=== PATIENT | female | born 1950 | race Caucasian/White ===

== ENCOUNTER 2017-10-12 11:31 | Observation (INO) | payer OTHER, MEDICARE ==
[2017-10-12] MEDS: SOD CHLORIDE 0.9% 500 ML IV (16:59)
[2017-10-12 17:02] LABS: ADD MAN DIFF? NO
[2017-10-12 17:03] LABS: BASOPHILS % 0.2 % (0.0-2.0); EOSINOPHILS % 0.3 % (0.0-7.0); HEMATOCRIT 43.6 % (37.0-47.0); HEMOGLOBIN 14.4 g/dl (12.0-16.0); LYMPHOCYTES # 0.9 10^3/ul (0.8-2.9); LYMPHOCYTES % 8.9 % (15.0-51.0); MEAN CORPUSCULAR HEMOGLOBIN 29.9 pg (29.0-33.0); MEAN CORPUSCULAR VOLUME 90.6 fl (82.0-101.0); MEAN PLATELET VOLUME 10.7 fl (7.4-10.4); MONOCYTE # 0.3 10^3/ul (0.3-0.9); MONOCYTES % 2.5 % (0.0-11.0); NEUTROPHIL # 8.7 10^3/ul (1.6-7.5); NEUTROPHILS % 87.3 % (39.0-77.0); PLATELET COUNT 230 10^3/UL (140-415); RED BLOOD COUNT 4.81 10^6/ul (4.20-5.40); RED CELL DISTRIBUTION WIDTH 13.5 % (11.5-14.5)
[2017-10-12] MEDS: ASPIRIN 81 MG TAB PO (17:04)
[2017-10-12 17:24] LABS: ALANINE AMINOTRANSFERASE 50 IU/L (13-69); ALBUMIN 4.7 g/dl (3.3-4.9); ALBUMIN/GLOBULIN RATIO 1.34; ALKALINE PHOSPHATASE 74 IU/L (42-121); ANION GAP 13 (8-16); ASPARTATE AMINO TRANSFERASE 39 IU/L (15-46); BILIRUBIN,INDIRECT 0.5 mg/dl (0-1.1); BILIRUBIN,TOTAL 0.5 mg/dl (0.2-1.3); BLOOD UREA NITROGEN 12 mg/dl (7-20); CALCIUM 9.5 mg/dl (8.4-10.2); CARBON DIOXIDE 29 mmol/L (21-31); CHLORIDE 97 mmol/L (97-110); CREATININE 0.71 mg/dl (0.44-1.00); GLUCOSE 128 mg/dl (70-220); LIPASE 124 U/L (23-300); POTASSIUM 4.1 mmol/L (3.5-5.1); SODIUM 135 mmol/L (135-144); TOTAL PROTEIN 8.2 g/dl (6.1-8.1)
[2017-10-12 17:36] LABS: TROPONIN-I < 0.012 ng/ml (0.00-0.12)
[2017-10-12] MEDS ORDERED: NITROGLYCERIN (SL) 0.4 MG TAB SL (19:00)
[2017-10-12] MEDS ORDERED: DOCUSATE SODIUM 100 MG CAP PO (19:00)
[2017-10-12] MEDS ORDERED: ONDANSETRON 4 MG INJ IV (19:00)
[2017-10-12] MEDS ORDERED: LORAZEPAM 2 MG INJ IV (19:00)
[2017-10-12] MEDS ORDERED: NACL 0.9% 3 ML SYG IV (19:00)
[2017-10-12] MEDS ORDERED: HYDROCODONE/APAP (5/325) TAB PO ×2 (19:00)
[2017-10-12] MEDS ORDERED: ACETAMINOPHEN 325 MG TAB PO (19:00)
[2017-10-12] MEDS ORDERED: MAGNESIUM HYDROXIDE 30ML CUP PO (19:00)
[2017-10-12 19:28] LABS: CHOLESTEROL 244 mg/dl (100-200)
[2017-10-12 19:28] LABS: CHOL/HDL RATIO 2.9 RATIO; HDL CHOLESTEROL 83 mg/dl (35-98); LDL CHOLESTEROL,CALCULATED 148 mg/dl; TRIGLYCERIDES 63 mg/dl (0-149)
[2017-10-12 19:46] LABS: HEMOGLOBIN A1C 5.5 % (0-5.9)
[2017-10-12 20:00] LABS: THYROID STIMULATING HORMONE 0.598 MIU/L (0.465-4.680)
[2017-10-12] MEDS: SALMETEROL/FLUTICASONE 250/50 INHA INH (21:00)
[2017-10-12] MEDS ORDERED: PREGABALIN 50 MG CAP PO (21:00)
[2017-10-12] MEDS: ZOLPIDEM 5 MG TAB PO (21:35)
[2017-10-12] MEDS: BUPROPION (SR) 100 MG TAB PO (21:36)
[2017-10-12] MEDS: MONTELUKAST 10 MG TAB PO (21:36)
[2017-10-12] MEDS: PREGABALIN 25 MG CAP PO (23:03)
[2017-10-13 02:02] LABS: TROPONIN-I < 0.012 ng/ml (0.00-0.12)
[2017-10-13 05:43] LABS: TROPONIN-I < 0.012 ng/ml (0.00-0.12)
[2017-10-13] MEDS: PANTOPRAZOLE (EC) 40 MG TAB PO (05:46)
[2017-10-13] MEDS: SALMETEROL/FLUTICASONE 250/50 INHA INH (08:47)
[2017-10-13] MEDS: LEVOTHYROXINE 125 MCG TAB PO (08:47)
[2017-10-13] MEDS: ARIPIPRAZOLE 5 MG TAB PO (08:47)
[2017-10-13] MEDS: predniSONE 20 MG TAB PO (08:48)
[2017-10-13] MEDS: MELOXICAM 15 MG TAB PO (08:48)
[2017-10-13] MEDS: PROPRANOLOL 20 MG TAB PO (08:48)
[2017-10-13] MEDS: PREGABALIN 25 MG CAP PO ×2 (08:48→13:22)
[2017-10-13] MEDS: BUPROPION (SR) 100 MG TAB PO (08:49)
[2017-10-13] MEDS: FLUOXETINE 20 MG CAP PO (08:49)
[2017-10-13] MEDS: ENOXAPARIN 40 MG/0.4 ML SYG SC (08:51)
[2017-10-13] MEDS ORDERED: [UNRECOGNIZED DRUG - OTHER] PO (09:00)
[2017-10-13] MEDS ORDERED: NON-FORMULARY/PATIENT OWN MED (Mirabegron (Myrbetriq) 50 MG) PO (09:00)
[2017-10-13] MEDS ORDERED: ESTRADIOL PO (09:00)
[2017-10-13] MEDS ORDERED: NORETHINDRONE ACET PO (09:00)
[2017-10-13 13:23] LABS: D-DIMER 450.03 ng/ml (<460)
== END 2017-10-13 15:00 | disposition home or self-care (01) ==
LOC: E/R 11:31 → MS3 21:34 → E/R 18:10 → MS3 18:10
DX: R07.89 Other chest pain (principal); Z88.6 Allergy status to analgesic agent; Z91.048 Other nonmedicinal substance allergy status; J45.909 Unspecified asthma, uncomplicated; E03.9 Hypothyroidism, unspecified; K21.9 Gastro-esophageal reflux disease without esophagitis; M85.80 Other specified disorders of bone density and structure, unspecified site; J84.89 Other specified interstitial pulmonary diseases; F39 Unspecified mood [affective] disorder
CPT/HCPCS: 36415; 71045; 80053; 80061; 83036; 83690; 84443; 84484; 85025; 85378; 93005; 93306; 93970; 99217; 99285-25

== ENCOUNTER 2018-12-28 11:39 | Emergency (ER) | payer OTHER, MEDICARE ==
[2018-12-28 19:40] LABS: ADD MAN DIFF? NO
[2018-12-28 19:47] LABS: WHITE BLOOD COUNT 7.3 10^3/ul (4.8-10.8)
[2018-12-28 19:47] LABS: BASOPHIL # 0.1 10^3/ul (0.0-0.1); EOSINOPHILS # 0.3 10^3/ul (0.0-0.5); EOSINOPHILS % 3.6 % (0.0-7.0); HEMATOCRIT 37.7 % (37.0-47.0); HEMOGLOBIN 12.2 g/dl (12.0-16.0); LYMPHOCYTES # 1.6 10^3/ul (0.8-2.9); LYMPHOCYTES % 21.7 % (15.0-51.0); MEAN CORPUSCULAR HEMOGLOBIN 27.1 pg (29.0-33.0); MEAN CORPUSCULAR HGB CONC 32.4 g/dl (32.0-37.0); MEAN CORPUSCULAR VOLUME 83.6 fl (82.0-101.0); MEAN PLATELET VOLUME 8.9 fl (7.4-10.4); MONOCYTE # 0.7 10^3/ul (0.3-0.9); MONOCYTES % 8.9 % (0.0-11.0); NEUTROPHIL # 4.7 10^3/ul (1.6-7.5); NEUTROPHILS % 64.3 % (39.0-77.0); PLATELET COUNT 422 10^3/UL (140-415); RED BLOOD COUNT 4.51 10^6/ul (4.20-5.40); RED CELL DISTRIBUTION WIDTH 14.3 % (11.5-14.5)
[2018-12-28 19:50] LABS: ADD UMIC NO; UR ASCORBIC ACID NEGATIVE (NEGATIVE); UR BACTERIA FEW /HPF (NONE SEEN); UR BILIRUBIN (Dip) NEGATIVE (NEGATIVE); UR BLOOD (Dip) NEGATIVE (NEGATIVE); UR CLARITY SLIGHTLY CLOUDY (CLEAR); UR COLOR YELLOW (YELLOW); UR GLUCOSE (Dip) NEGATIVE (NEGATIVE); UR KETONES (Dip) NEGATIVE (NEGATIVE); UR LEUKOCYTE ESTERASE (Dip) NEGATIVE Leu/ul (NEGATIVE); UR NITRITE (Dip) NEGATIVE (NEGATIVE); UR RBC 2 /HPF (0-5); UR SPECIFIC GRAVITY (Dip) 1.005 (1.003-1.030); UR SQUAMOUS EPITHELIAL CELL FEW /HPF (FEW); UR TOTAL PROTEIN (Dip) NEGATIVE (NEGATIVE); UR UROBILINOGEN (Dip) NEGATIVE (NEGATIVE); UR WBC 2 /HPF (0-5)
[2018-12-28 19:59] LABS: INR 0.95; PROTIME 12.8 Sec (11.9-14.9)
[2018-12-28 20:00] LABS: PARTIAL THROMBOPLASTIN TIME 28.7 Sec (23.0-35.0)
[2018-12-28 20:06] LABS: ALANINE AMINOTRANSFERASE 26 IU/L (13-69); ALBUMIN 4.3 g/dl (3.3-4.9); ALBUMIN/GLOBULIN RATIO 1.43; ALKALINE PHOSPHATASE 61 IU/L (42-121); AMPHETAMINE/METHAMPHETAMINE Negative (NEGATIVE); ANION GAP 8 (5-13); ASPARTATE AMINO TRANSFERASE 37 IU/L (15-46); BARBITURATES Negative (NEGATIVE); BENZODIAZEPINES Negative (NEGATIVE); BILIRUBIN,INDIRECT 0.2 mg/dl (0-1.1); BILIRUBIN,TOTAL 0.2 mg/dl (0.2-1.3); BLOOD UREA NITROGEN 9 mg/dl (7-20); CALCIUM 9.2 mg/dl (8.4-10.2); CANNABINOIDS Negative (NEGATIVE); CARBON DIOXIDE 27 mmol/L (21-31); CHLORIDE 94 mmol/L (97-110); CHOL/HDL RATIO 2.7 RATIO; CHOLESTEROL 173 mg/dl (100-200); COCAINE Negative (NEGATIVE); CREATININE 0.62 mg/dl (0.44-1.00); Estimated GFR > 60 mL/min (>60); GLUCOSE 99 mg/dl (70-220); HDL CHOLESTEROL 63 mg/dl (35-98); LDL CHOLESTEROL,CALCULATED 98 mg/dl; OPIATES Negative (NEGATIVE); POTASSIUM 3.7 mmol/L (3.5-5.1); SODIUM 129 mmol/L (135-144); TOTAL PROTEIN 7.3 g/dl (6.1-8.1); TRIGLYCERIDES 60 mg/dl (0-149)
[2018-12-28 20:09] LABS: HEMOGLOBIN A1C 5.4 % (0-5.9)
[2018-12-28 20:17] LABS: TROPONIN-I < 0.012 ng/ml (0.000-0.120)
[2018-12-28] MEDS: IOHEXOL 100 ML (20:20)
[2018-12-28] MEDS: SOD CHLORIDE 0.9% 100 ML (20:20)
== END 2018-12-28 23:08 | disposition home or self-care (01) ==
LOC: E/R 11:39
DX: R53.1 Weakness (principal); R41.82 Altered mental status, unspecified
CPT/HCPCS: 36415; 70450; 70496; 70498; 71045; 80053; 80061; 80307; 81001; 81003; 82962; 83036; 84484; 85025; 85610; 85730; 93005; 99285-25

== ENCOUNTER 2019-01-29 14:55 | Emergency (ER) | payer OTHER, MEDICARE ==
[2019-01-29 15:31] LABS: ADD MAN DIFF? NO
[2019-01-29 15:44] LABS: INR 0.98; PROTIME 13.1 Sec (11.9-14.9)
[2019-01-29 15:45] LABS: PARTIAL THROMBOPLASTIN TIME 27.9 Sec (23.0-35.0)
[2019-01-29 15:47] LABS: ANION GAP 9 (5-13); BLOOD UREA NITROGEN 13 mg/dl (7-20); CALCIUM 8.9 mg/dl (8.4-10.2); CARBON DIOXIDE 23 mmol/L (21-31); CHLORIDE 96 mmol/L (97-110); CREATININE 0.65 mg/dl (0.44-1.00); Estimated GFR > 60 mL/min (>60); GLUCOSE 129 mg/dl (70-220); POTASSIUM 3.6 mmol/L (3.5-5.1); SODIUM 128 mmol/L (135-144)
[2019-01-29 15:52] LABS: WHITE BLOOD COUNT 8.5 10^3/ul (4.8-10.8)
[2019-01-29 15:52] LABS: BASOPHILS % 0.5 % (0.0-2.0); EOSINOPHILS # 0.2 10^3/ul (0.0-0.5); EOSINOPHILS % 2.4 % (0.0-7.0); HEMATOCRIT 34.4 % (37.0-47.0); HEMOGLOBIN 11.3 g/dl (12.0-16.0); LYMPHOCYTES # 1.3 10^3/ul (0.8-2.9); MEAN CORPUSCULAR HEMOGLOBIN 27.8 pg (29.0-33.0); MEAN CORPUSCULAR HGB CONC 32.8 g/dl (32.0-37.0); MEAN CORPUSCULAR VOLUME 84.5 fl (82.0-101.0); MEAN PLATELET VOLUME 9.4 fl (7.4-10.4); MONOCYTE # 0.5 10^3/ul (0.3-0.9); MONOCYTES % 6.3 % (0.0-11.0); NEUTROPHIL # 6.4 10^3/ul (1.6-7.5); NEUTROPHILS % 75.7 % (39.0-77.0); PLATELET COUNT 299 10^3/UL (140-415); RED BLOOD COUNT 4.07 10^6/ul (4.20-5.40); RED CELL DISTRIBUTION WIDTH 14.3 % (11.5-14.5)
== END 2019-01-29 17:42 | disposition home or self-care (01) ==
LOC: E/R 14:55
DX: F41.0 Panic disorder [episodic paroxysmal anxiety] (principal); D64.9 Anemia, unspecified; R07.89 Other chest pain; E03.9 Hypothyroidism, unspecified; Z79.82 Long term (current) use of aspirin
CPT/HCPCS: 36415; 70450; 80048; 82962; 85025; 85610; 85730; 99284-25